=== PATIENT | female | born 1955 | race Caucasian/White ===

== ENCOUNTER 2016-05-08 11:52 | Emergency (ER) | payer OTHER ==
--- NOTE | 2016-05-08 14:44 | DIAGNOSTIC IMAGING REPORT ---
PROCEDURE: XR CHEST 2 VIEW INDICATION: CHEST PAIN TECHNIQUE: Two views. COMPARISON: None. FINDINGS: The cardiomediastinal contour and central vasculature are within normal limits. The lungs are clear without focal consolidation, pleural effusion, or pneumothorax. The visualized osseous structures are intact. IMPRESSION: 1. Normal chest.
--- NOTE | 2016-05-08 14:53 | ED NURSING NOTES ---
Clinical Report - Nurses [facility] [address] [place] [address] 05/08/2016 11:55 Patient: GIDEON RAMIREZ TRIAGE Triage time 1203. Acuity: LEVEL 3. Chief Complaint: CHEST PAIN and (midsternal chest pain onset at 0930 today- at 04/[address] torres to get sooner dr valente and was told to come to ED instead (pain now 02/17--"just a pressure"). SANDY COMA SCORE: [place] Coma Scale: 15- eyes open spontaneously (4); best verbal response- oriented x 4 (5); best motor response- obeys commands (6). --12:10 Lara Fine R.N. 12:00 05/08/16. BP: 117/45. HR: 71. RR: 18. O2 saturation: 98% on room air. Temp: 98.7 F. Pain level now: 02/17. --12:10 Lara Fine R.N. Weight: 63.5 kg stated. Height/Length: 67 inches Per Patient. BMI: 21.9. --12:09 Lara Fine R.N. Medications Corgard Oral 40 mg, takes 1/2 tab at bedtime. --12:07 Lara Fine R.N. Aleve Oral 220 mg, 2 tabs at 11am as needed. --12:15 Lara Fine R.N. Butabarbital Sodium Oral (Tablet 30 mg) 1 tablet, daily (may take up to 3 for headaches ). --12:17 Lara Fine R.N. Estradiol Oral (Tablet 1 mg) 1 tablet, daily . --12:18 Lara Fine R.N. ASA 325mg at 10am . --13:04 Lara Fine R.N. The following entry was struck by Lara Fine R.N., 12:18 (05/08/16) Reason - other. <<STRICKEN ENTRY-- Estrodial. --12:07 Lara Fine R.N. --END STRIKE>> The following entry was struck and corrected by Lara Fine R.N., 12:18 (05/08/16) Reason for correction - other(correction). <<STRICKEN ENTRY-- Corgard Oral. --12:07 Lara Fine R.N. --END STRIKE>> The following entry was struck by Lara Fine R.N., 12:16 (05/08/16) Reason - other. <<STRICKEN ENTRY-- BusPIRone HCl Oral. --12:07 Lara Fine R.N. --END STRIKE>>. Allergies Novacaine= severe vomiting . --12:07 Lara Fine R.N. History Arrived by private vehicle. Historian: patient. Accompanied by (dropped off by daughter). Primary physician (Xavier). ( has had these off and on for about 1 month). Reports experiencing sweating episodes. ( has had dizziness with this pain in past, but not today.). No difficulty breathing, nausea or vomiting. PAST MEDICAL HX: The patient is post-menopausal. ( irritable bowel syndrome , chronic low back pain). SURGERY HX: Had hysterectomy. ( nasal repair , breast reduction then implant). SOCIAL HX: Never smoker. Alcohol use; consumes two glasses of wine weekly. --12:10 Lara Fine R.N. Interventions ID band on patient. To treatment room. --12:10 Lara Fine R.N. PHYSICAL ASSESSMENT 12:03. Ambulatory to room. Patient gowned. GENERAL / NEURO / PSYCH: Alert. Oriented X 4. Appears in no acute distress. RESPIRATORY: Respirations not labored. Chest wall tenderness. CVS: Pulses within normal limits. GI / : Abdomen soft. EXTREMITIES: No lower extremity edema. SKIN: Skin is warm and dry. --12:11 Lara Fine R.N. NURSING PROGRESS NOTES 12:03. Oxygen administered by nasal cannula at 2 liters. clinical research monitor placed on patient. Patient gowned. Head of bed elevated. Reassurance given. Patient identifiers checked. Call light placed in reach. Side rails up. Bed placed in lowest position. Patient ready for evaluation- chart flagged. --12:11 Lara Fine R.N. 12:07 05/08/2016 Site #1 started via IV in the left antecubital space with an 20g angiocath; one attempt. Blood drawn: rainbow set. Labeled in the presence of the patient and sent to the lab. Saline lock flushed with 10 mL saline (IV start by JODI Fields). --12:12 Lara Fine R.N. EKG time: (8887). EKG was ordered, performed and shown to the ED physician. EKG done by RT. --12:35 Lara Fine R.N. 12:30 05/08/16. BP: 109/68. HR: 67. RR: 16. O2 saturation: 100%. Temp: deferred. Pain level now: 1/10. --12:35 Lara Fine R.N. 13:00 05/08/16. BP: 118/66. HR: 62. RR: 16. O2 saturation: 100% on nasal cannula at 2 liters/minute. Temp: deferred. Pain level now: 0/10. Additional comments: resting queitly, watching t.v. denies pain or SOB . --13:05 Lara Fine R.N. 13:30 05/08/16. BP: 113/53. HR: 64. RR: 16. O2 saturation: 100% on nasal cannula. Temp: deferred. Pain level now: 0/10. Additional comments: daughter at bedside. --14:12 Lara Fine R.N. 13:55. ( pt ambulated to bathroom, UA sent to lab. Pt denies chest pain, SOB or dizziness with activity). --14:12 Lara Fine R.N. 14:00. Patient transported to radiology by wheelchair with tech. --14:13 Lara Fine R.N. 14:12. Patient returned from radiology by wheelchair with tech. --14:13 Lara Fine R.N. 14:13 05/08/16. BP: 118/54. HR: 62. RR: 18. O2 saturation: 100%. Temp: deferred. Pain level now: 0/10. --14:14 Lara Fine R.N. 14:15 05/08/2016 Started bag #1 1000 mL IV Fluids IV NS (Saline); bolus of 500 mL over 30 minute(s) then at 200 mL/hr over 1 hour(s) via site #1 via IV pump. --15:35 Lara Fine R.N. 14:45 05/08/2016 IV Fluids IV NS via IV site #1 Rate Changed: bag #1 decreased to 500 mL/hr via IV pump. IV patency established. IV site checked: no pain, redness, or swelling. IV flushed thoroughly. --15:36 Lara Fine R.N. 15:00. Patient ID band checked for patient name and birthdate. Blood samples drawn by lab per protocol ; labeled in presence of the patient and sent to lab. --15:37 Lara Fine R.N. 15:10 05/08/16. BP: 109/71. HR: 70. RR: 16. O2 saturation: 100% on nasal cannula at 2 liters/minute. Temp: deferred. Pain level now: 1/10. Additional comments: pt states she has a small amount of pressure in right chest wall. "almost gone now" lsted less than 2 min . --15:39 Lara Fine R.N. 15:15. ( ERMD in to talk with pt about transfer to [facility] for further work up. Daughter at bedside.). --15:39 Lara Fine R.N. 15:40 05/08/2016 IV Fluids IV NS Discontinued: bag #1 STOPPED upon discharge. Total amount infused: 900 mL. IV patency established. IV site checked: no pain, redness, or swelling. IV flushed thoroughly. --15:52 Lara Fine R.N. 15:25. ( COBRA form signed by pt for transport.). --15:58 Lara Fine R.N. 15:40. ( Pt ambulated to bathroom prior to transport to [facility], EMS crew here, report given). --15:58 Lara Fine R.N. 15:40 05/08/2016 Site #[address] upon transfer; patent. Converted to saline lock. --15:59 Lara Fine R.N. 15:40 05/08/2016 IV Saline Lock Drip IV Continued: upon transfer at the rate of 0 mL/hr. 0 mL remaining bag #1. IV patency established. IV site checked: no pain, redness, or swelling. IV flushed thoroughly. --16:01 Lara Fine R.N. DISPOSITION / DISCHARGE 15:45. Condition at departure: improved and stable. Transferred to [facility]. Transported via ambulance by EMS with monitor, IV and O2. Report was given to a nurse via a phone call. ([facility] SANDY COMA SCORE: [place] Coma Scale: 15- eyes open spontaneously (4); best verbal response- oriented x 4 (5); best motor response- obeys commands (6). --15:51 Lara Fine R.N. 15:45 05/08/16. BP: 116/60. HR: 78. RR: 16. O2 saturation: 99% on nasal cannula at 2 liters/minute. Temp: deferred. Pain level now: 0/10. --15:51 Lara Fine R.N. Departure time: 1556. --15:57 Lara Fine R.N. Locked/Released at 05/08/2016 16:34 by Lara Fine R.N.
--- NOTE | 2016-05-08 14:53 | ED CLINICAL REPORT ---
Clinical Report - Physicians/Mid Levels [facility] [address] [place] [address] 05/08/2016 11:55 Patient: GIDEON RAMIREZ Time Seen: 12:39. Arrived- By private vehicle. Historian- patient. HISTORY OF PRESENT ILLNESS Chief Complaint: CHEST PAIN. It is described as tightness and "pain" and it is described as located in the central chest area. No radiation. At its maximum, severity described as moderate. When seen in the E.D., it was almost gone. Modifying factors. Not worsened by anything. Not relieved by anything. This started about 1 month ago and is still present. It was gradual in onset and has been intermittent and waxing/waning. Onset during light activity. No nausea, vomiting or difficulty breathing. She has experienced diaphoresis. Similar symptoms previously: Recent medical care: Not recently seen/assessed. REVIEW OF SYSTEMS No fever, chills, cough, pedal edema or calf pain. No fainting episodes, headache, sore throat, blurred vision or abdominal pain. No black stools, difficulty with urination, skin rash, enlarged lymph nodes or joint pain. No bloody stools. All systems otherwise negative, except as recorded above. PAST HISTORY See nurses notes. Primary physician (Xavier) - located in [facility] Irritable bowel syndrome, Chronic low back pain. SURGERY HX: Hysterectomy. Nasal repair. Breast reduction then implant. Medications: Estradiol Oral (Tablet 1 mg) 1 tablet, daily . Butabarbital Sodium Oral (Tablet 30 mg) 1 tablet, daily (may take up to 3 for headaches ). Aleve Oral 220 mg, 2 tabs at 11am as needed. Corgard Oral 40 mg, takes 1/2 tab at bedtime. Allergies: Novacaine= severe vomiting . SOCIAL HISTORY Never smoker. Occasional alcohol use. No drug use. Residence: [place] - recently moved from the [facility]. ADDITIONAL NOTES The nursing notes have been reviewed. PHYSICAL EXAM Vital Signs: 05/08/2016 12:30 BP: 109/68. HR: 67. RR: 16. O2 saturation: 100%. Pain level now: 02/17. 05/08/2016 12:00 BP: 117/45. HR: 71. RR: 18. O2 saturation: 98%. Temp: 98.7 F. Pain level now: 02/17. Appearance: Alert. Oriented X3. No acute distress. Eyes: Pupils equal, round and reactive to light. Eyes normal inspection. No scleral icterus or pale conjunctivae. ENT: Pharynx normal. No pharyngeal erythema or tonsillar exudate. The mucous membranes are not dry. Neck: Normal inspection. Neck supple. CVS: Normal heart rate and rhythm. Heart sounds normal. Pulses normal. Respiratory: No respiratory distress. Breath sounds normal. Chest nontender. Abdomen: Soft and nontender. No mass. Back: Normal external inspection. Skin: Skin warm and dry. Normal skin color. No rash. Normal skin turgor. Extremities: Extremities exhibit normal ROM. No calf tenderness. No lower extremity edema. Neuro: Oriented X 3. No motor deficit. LABS, X-RAYS, AND EKG EKG: EKG time: (12:37). Normal sinus rhythm. Rate: 65. Normal P waves. Nondiagnostic Q waves in lead III, V1, V2 and V3. Poor R wave progression. Normal axis. Normal ST and T waves. Non-specific ST segment / T wave abnormalities. Non-specific T wave flattening in lead III, aVF, V2 and V3. T wave inversion in lead aVR and V1 (normal). The study has been interpreted contemporaneously by me. The EKG appears to be a good tracing. Rhythm Strip #1: Normal sinus rhythm. Regular rhythm. Narrow QRS complexes. No ectopy. Chest X-ray: No acute disease. Normal lung markings present. Normal heart size. Mediastinum normal. Great vessels normal. No infiltrate. Views: PA and lateral. Technique: good. The X-rays were interpreted contemporaneously by me. Laboratory Tests: CBC w Diff: (NELLIE: 05/08/2016 12:12) ( MsgRcvd 05/08/2016 12:37) Final results Test Result Flag Units (Reference) WHITE BLOOD COUNT 7.7 K/uL (4.5-11.5) RED BLOOD COUNT 4.78 M/uL (4.00-5.20) HEMOGLOBIN 14.7 gm/dL (12.0-16.0) HEMATOCRIT 44.1 % (36.0-46.0) MEAN CELL VOLUME 92 fL (80-100) MEAN CORPUSCULAR HGB 31 pg (26-34) MEAN CORPUSCULAR HGB CONC 33 g/dL (31-37) RED CELL DISTRIBUTION WIDTH 12.4 % (11.6-14.8) PLATELET COUNT 287 K/uL (150-400) NEUTROPHIL % 77.5 H % (50-75) LYMPH % 11.2 L % (25-40) MONO % 8.4 % (3-14) EOSINOPHIL % 2.5 % (0-4) BASOPHIL % 0.4 % (0-2) Troponin-I: (NELLIE: 05/08/2016 15:00) ( [facility] 05/08/2016 15:38) Final results Test Result Flag Units (Reference) TROPONIN I 0.05 ng/mL (0.00-1.5) TROPONIN REFERENCE RANGE:<0.1 NEGATIVE0.1-1.5 INDETERMINANT>1.5 POSITIVE CMP: (NELLIE: 05/08/2016 12:12) ( [facility] 05/08/2016 13:24) Final results Test Result Flag Units (Reference) GLUCOSE 109 mg/dL (70-110) BUN 20 H mg/dL (7-18) CREATININE 0.8 mg/dL (0.6-1.3) Estimated GFR >60 mL/min Estimated GFR- >60 mL/min Note: Persistent reduction over 3 months in eGFR<60 mL/min/1.73 m2 defines CKD. Patients with eGFR values>=60 mL/min/1.73 m2 may also have CKD if evidence ofpersistent proteinuria. Additional information may be foundat www.kidney.org. SODIUM 141 mmol/L (136-145) POTASSIUM 4.5 mmol/L (3.5-5.1) CHLORIDE 103 mmol/L (98-107) CARBON DIOXIDE 28 mmol/L (21-32) CALCIUM 9.6 mg/dL (8.5-10.1) TOTAL PROTEIN 7.7 g/dL (6.4-8.2) ALBUMIN 4.1 g/dL (3.3-5.0) BILIRUBIN, TOTAL 0.5 mg/dL (0.0-1.0) ALKALINE PHOSPHATASE 75 U/L (46-116) AST (SGOT) 19 U/L (15-37) ALT (SGPT) 20 U/L (12-78) CPK 78 U/L (24-260) TROPONIN I <0.05 ng/mL (0.00-1.5) TROPONIN REFERENCE RANGE:<0.1 NEGATIVE0.1-1.5 INDETERMINANT>1.5 POSITIVE . Pulse Oximetry: 05/08/2016 12:00 O2 saturation: 98%. (FIO2 - room air). Interpretation: normal. PROGRESS AND PROCEDURES Course of Care: ASA 325 mg po taken prior to arrival. LMWH held due to low risk. No nitrates given as she remained pain free in the ED Patient is stable. The patient's symptoms are now gone. Physical exam findings are improved. Pt with some concerning history - stuttering CP / tightness with diaphoresis for a month with some nonspecific ECG changes, but neg trop I now. She should have a "rule out" and functional assessment and, as there is no ability to perform a treadmill at [facility] today or tomorrow, we will transfer to [facility] for further work up, monitoring and treatment. Discussed case with hospitalist, (Barak). Reviewed test results. Agreed upon treatment plan. Refers case to other health care provider. Discussed case with hospitalist, (Erlinda ([facility] cardiology) call returned- feels it is reasonable to admit and rule out with treadmill; [facility] hospitalist call placed 13:48 (no retur) call placed 14:34; call returned 14:50 (Dr Regan) - accepts pt in transfer). Reviewed test results. Agreed upon treatment plan. Patient/family counseled. Transfer orders written. Disposition: Transferred to [facility]. Condition: stable. CLINICAL IMPRESSION Precordial chest pain .12 lead EKG performed. (Electronically signed by Michael Arora DO 05/08/2016 16:07)
--- NOTE | 2016-05-08 14:53 | ED ORDER SUMMARY ---
..... Patient: GIDEON RAMIREZ OrderSheet [facility] VisitID: [id number] [place] [address] 61y, F Registration Date/Time: 05/08/2016 ORDER SHEET Weight: 63.5 kg (stated) Allergies: Novacaine= severe vomiting GENERAL ORDERS: Forensic Sergeant (Continuous) (chest pain ) (12:05/08/2016 DDean R.N. per protocol) (12:14 DDean R.N.) EKG - ER Stat (12:05/08/2016 DDean R.N. per protocol) (Ack 12:32 Terra) (12:35 DDean R.N.) Oxygen (2 L/min) (NC) (12:05/08/2016 DDean R.N. per protocol) (12:14 DDean R.N.) CBC w Diff Urgent (12:25 05/08/2016 DDean R.N. per protocol) (Ack 12:32 Terra) (12:36 DDean R.N.) CMP Urgent (12:25 05/08/2016 DDean R.N. per protocol) (Ack 12:32 Terra) (12:36 DDean R.N.) Troponin-I Urgent (12:41 05/08/2016 PHutchinson DO) (Ack 12:43 Terra) (13:07 DDean R.N.) CPK Urgent (12:41 05/08/2016 PHutchinson DO) (Ack 12:43 Terra) (13:07 DDean R.N.) Troponin-I (at 16:00) Urgent (13:32 05/08/2016 PHutchinson DO) (Cancelled: Other13:41 PHutchinson DO) - (Exercise Stress Test at 17:00 today) (13:32 05/08/2016 PHutchinson DO) (Ack 14:19 Nahun) (Cancelled: Other16:01 DDean R.N.) Troponin-I (repeat trop I at 15:00) Urgent (13:42 05/08/2016 PHutchinson DO) (Ack 14:18 Nahun) (15:36 DDean R.N.) Call (Place call to): ([facility] hosptialist) (13:43 05/08/2016 [facility]) (13:49 IDregis) Chest 2V Urgent (13:54 05/08/2016 [facility]) (Ack 13:59 OHregis) (14:13 DDean R.N.) MEDICATION ORDERS: Aspirin PO 325 mg (if not taken) (12:41 05/08/2016 [facility]) (Cancelled: Other13:07 DDean R.N.) IV FLUIDS: IV Saline Lock (12:14 05/08/2016 DDean R.N. per protocol) (12:14 DDean R.N.) IV NS : initial bolus 500 mL (1000 mL/hr), then 500 mL/hr for X1 (NOW) (13:43 05/08/2016 [facility]) (Ack 14:10 DDean R.N.) (15:35 DDean R.N.) ORDER SHEET NOTES: [Electronically signed by Michael Arora DO (16:07 05/08/2016)] [Electronically signed by Lara Fine R.N. (16:34 05/08/2016)] [Electronically locked/signed by Lara Fine R.N. (16:34 05/08/2016)]
--- NOTE | 2016-05-08 14:53 | ED ORDER SUMMARY ---
..... Patient: GIDEON RAMIREZ OrderSheet [facility] VisitID: [id number] [place] [address] 61y, F Registration Date/Time: 05/08/2016 ORDER SHEET Weight: 63.5 kg (stated) Allergies: Novacaine= severe vomiting GENERAL ORDERS: Facing Slitter (Continuous) (chest pain ) (12:05/08/2016 DDean R.N. per protocol) (12:14 DDean R.N.) EKG - ER Stat (12:05/08/2016 DDean R.N. per protocol) (Ack 12:32 Terra) (12:35 DDean R.N.) Oxygen (2 L/min) (NC) (12:05/08/2016 DDean R.N. per protocol) (12:14 DDean R.N.) CBC w Diff Urgent (12:25 05/08/2016 DDean R.N. per protocol) (Ack 12:32 Terra) (12:36 DDean R.N.) CMP Urgent (12:25 05/08/2016 DDean R.N. per protocol) (Ack 12:32 Terra) (12:36 DDean R.N.) Troponin-I Urgent (12:41 05/08/2016 PHutchinson DO) (Ack 12:43 Terra) (13:07 DDean R.N.) CPK Urgent (12:41 05/08/2016 PHutchinson DO) (Ack 12:43 Terra) (13:07 DDean R.N.) Troponin-I (at 16:00) Urgent (13:32 05/08/2016 PHutchinson DO) (Cancelled: Other13:41 PHutchinson DO) - (Exercise Stress Test at 17:00 today) (13:32 05/08/2016 PHutchinson DO) (Ack 14:19 Nahun) (Cancelled: Other16:01 DDean R.N.) Troponin-I (repeat trop I at 15:00) Urgent (13:42 05/08/2016 PHutchinson DO) (Ack 14:18 Nahun) (15:36 DDean R.N.) Call (Place call to): ([facility] hosptialist) (13:43 05/08/2016 [facility]) (13:49 MOregis) Chest 2V Urgent (13:54 05/08/2016 [facility]) (Ack 13:59 OHregis) (14:13 DDean R.N.) MEDICATION ORDERS: Aspirin PO 325 mg (if not taken) (12:41 05/08/2016 [facility]) (Cancelled: Other13:07 DDean R.N.) IV FLUIDS: IV Saline Lock (12:14 05/08/2016 DDean R.N. per protocol) (12:14 DDean R.N.) IV NS : initial bolus 500 mL (1000 mL/hr), then 500 mL/hr for X1 (NOW) (13:43 05/08/2016 [facility]) (Ack 14:10 DDean R.N.) (15:35 DDean R.N.) ORDER SHEET NOTES: [Electronically signed by Michael Arora DO (16:07 05/08/2016)] [Electronically signed by Lara Fine R.N. (16:34 05/08/2016)] [Electronically locked/signed by Lara Fine R.N. (16:34 05/08/2016)]
--- NOTE | 2016-05-08 14:53 | ED NURSING NOTES ---
Clinical Report - Nurses [facility] [address] [place] [address] 05/08/2016 11:55 Patient: GIDEON RAMIREZ TRIAGE Triage time 1203. Acuity: LEVEL 3. Chief Complaint: CHEST PAIN and (midsternal chest pain onset at 0930 today- at 04/[address] torres to get sooner dr valente and was told to come to ED instead (pain now 02/17--"just a pressure"). SANDY COMA SCORE: Louise Coma Scale: 15- eyes open spontaneously (4); best verbal response- oriented x 4 (5); best motor response- obeys commands (6). --12:10 Lara Fine R.N. 12:00 05/08/16. BP: 117/45. HR: 71. RR: 18. O2 saturation: 98% on room air. Temp: 98.7 F. Pain level now: 02/17. --12:10 Lara Fine R.N. Weight: 63.5 kg stated. Height/Length: 67 inches Per Patient. BMI: 21.9. --12:09 Lara Fine R.N. Medications Corgard Oral 40 mg, takes 1/2 tab at bedtime. --12:07 Lara Fine R.N. Aleve Oral 220 mg, 2 tabs at 11am as needed. --12:15 Lara Fine R.N. Butabarbital Sodium Oral (Tablet 30 mg) 1 tablet, daily (may take up to 3 for headaches ). --12:17 Lara Fine R.N. Estradiol Oral (Tablet 1 mg) 1 tablet, daily . --12:18 Lara Fine R.N. ASA 325mg at 10am . --13:04 Lara Fine R.N. The following entry was struck by Lara Fine R.N., 12:18 (05/08/16) Reason - other. <<STRICKEN ENTRY-- Estrodial. --12:07 Lara Fine R.N. --END STRIKE>> The following entry was struck and corrected by Lara Fine R.N., 12:18 (05/08/16) Reason for correction - other(correction). <<STRICKEN ENTRY-- Corgard Oral. --12:07 Lara Fine R.N. --END STRIKE>> The following entry was struck by Lara Fine R.N., 12:16 (05/08/16) Reason - other. <<STRICKEN ENTRY-- BusPIRone HCl Oral. --12:07 Lara Fine R.N. --END STRIKE>>. Allergies Novacaine= severe vomiting . --12:07 Lara Fine R.N. History Arrived by private vehicle. Historian: patient. Accompanied by (dropped off by daughter). Primary physician (Xavier). ( has had these off and on for about 1 month). Reports experiencing sweating episodes. ( has had dizziness with this pain in past, but not today.). No difficulty breathing, nausea or vomiting. PAST MEDICAL HX: The patient is post-menopausal. ( irritable bowel syndrome , chronic low back pain). SURGERY HX: Had hysterectomy. ( nasal repair , breast reduction then implant). SOCIAL HX: Never smoker. Alcohol use; consumes two glasses of wine weekly. --12:10 Lara Fine R.N. Interventions ID band on patient. To treatment room. --12:10 Lara Fine R.N. PHYSICAL ASSESSMENT 12:03. Ambulatory to room. Patient gowned. GENERAL / NEURO / PSYCH: Alert. Oriented X 4. Appears in no acute distress. RESPIRATORY: Respirations not labored. Chest wall tenderness. CVS: Pulses within normal limits. GI / : Abdomen soft. EXTREMITIES: No lower extremity edema. SKIN: Skin is warm and dry. --12:11 Lara Fine R.N. NURSING PROGRESS NOTES 12:03. Oxygen administered by nasal cannula at 2 liters. monitoring analyst placed on patient. Patient gowned. Head of bed elevated. Reassurance given. Patient identifiers checked. Call light placed in reach. Side rails up. Bed placed in lowest position. Patient ready for evaluation- chart flagged. --12:11 Lara Fine R.N. 12:07 05/08/2016 Site #1 started via IV in the left antecubital space with an 20g angiocath; one attempt. Blood drawn: rainbow set. Labeled in the presence of the patient and sent to the lab. Saline lock flushed with 10 mL saline (IV start by JODI Fields). --12:12 Lara Fine R.N. EKG time: (0827). EKG was ordered, performed and shown to the ED physician. EKG done by RT. --12:35 Lara Fine R.N. 12:30 05/08/16. BP: 109/68. HR: 67. RR: 16. O2 saturation: 100%. Temp: deferred. Pain level now: 1/10. --12:35 Lara Fine R.N. 13:00 05/08/16. BP: 118/66. HR: 62. RR: 16. O2 saturation: 100% on nasal cannula at 2 liters/minute. Temp: deferred. Pain level now: 0/10. Additional comments: resting queitly, watching t.v. denies pain or SOB . --13:05 Lara Fine R.N. 13:30 05/08/16. BP: 113/53. HR: 64. RR: 16. O2 saturation: 100% on nasal cannula. Temp: deferred. Pain level now: 0/10. Additional comments: daughter at bedside. --14:12 Lara Fine R.N. 13:55. ( pt ambulated to bathroom, UA sent to lab. Pt denies chest pain, SOB or dizziness with activity). --14:12 Lara Fine R.N. 14:00. Patient transported to radiology by wheelchair with tech. --14:13 Lara Fine R.N. 14:12. Patient returned from radiology by wheelchair with tech. --14:13 Lara Fine R.N. 14:13 05/08/16. BP: 118/54. HR: 62. RR: 18. O2 saturation: 100%. Temp: deferred. Pain level now: 0/10. --14:14 Lara Fine R.N. 14:15 05/08/2016 Started bag #1 1000 mL IV Fluids IV NS (Saline); bolus of 500 mL over 30 minute(s) then at 200 mL/hr over 1 hour(s) via site #1 via IV pump. --15:35 Lara Fine R.N. 14:45 05/08/2016 IV Fluids IV NS via IV site #1 Rate Changed: bag #1 decreased to 500 mL/hr via IV pump. IV patency established. IV site checked: no pain, redness, or swelling. IV flushed thoroughly. --15:36 Lara Fine R.N. 15:00. Patient ID band checked for patient name and birthdate. Blood samples drawn by lab per protocol ; labeled in presence of the patient and sent to lab. --15:37 Lara Fine R.N. 15:10 05/08/16. BP: 109/71. HR: 70. RR: 16. O2 saturation: 100% on nasal cannula at 2 liters/minute. Temp: deferred. Pain level now: 1/10. Additional comments: pt states she has a small amount of pressure in right chest wall. "almost gone now" lsted less than 2 min . --15:39 Lara Fine R.N. 15:15. ( ERMD in to talk with pt about transfer to [facility] for further work up. Daughter at bedside.). --15:39 Lara Fine R.N. 15:40 05/08/2016 IV Fluids IV NS Discontinued: bag #1 STOPPED upon discharge. Total amount infused: 900 mL. IV patency established. IV site checked: no pain, redness, or swelling. IV flushed thoroughly. --15:52 Lara Fine R.N. 15:25. ( COBRA form signed by pt for transport.). --15:58 Lara Fine R.N. 15:40. ( Pt ambulated to bathroom prior to transport to [facility], EMS crew here, report given). --15:58 Lara Fine R.N. 15:40 05/08/2016 Site #[address] upon transfer; patent. Converted to saline lock. --15:59 Lara Fine R.N. 15:40 05/08/2016 IV Saline Lock Drip IV Continued: upon transfer at the rate of 0 mL/hr. 0 mL remaining bag #1. IV patency established. IV site checked: no pain, redness, or swelling. IV flushed thoroughly. --16:01 Lara Fine R.N. DISPOSITION / DISCHARGE 15:45. Condition at departure: improved and stable. Transferred to [facility]. Transported via ambulance by EMS with monitor, IV and O2. Report was given to a nurse via a phone call. ([facility] SANDY COMA SCORE: Sandy Coma Scale: 15- eyes open spontaneously (4); best verbal response- oriented x 4 (5); best motor response- obeys commands (6). --15:51 Lara Fine R.N. 15:45 05/08/16. BP: 116/60. HR: 78. RR: 16. O2 saturation: 99% on nasal cannula at 2 liters/minute. Temp: deferred. Pain level now: 0/10. --15:51 Lara Fine R.N. Departure time: 1556. --15:57 Lara Fine R.N. Locked/Released at 05/08/2016 16:34 by Lara Fine R.N.
--- NOTE | 2016-05-08 14:53 | ED CLINICAL REPORT ---
Clinical Report - Physicians/Mid Levels [facility] [address] [place] [address] 05/08/2016 11:55 Patient: GIDEON RAMIREZ Time Seen: 12:39. Arrived- By private vehicle. Historian- patient. HISTORY OF PRESENT ILLNESS Chief Complaint: CHEST PAIN. It is described as tightness and "pain" and it is described as located in the central chest area. No radiation. At its maximum, severity described as moderate. When seen in the E.D., it was almost gone. Modifying factors. Not worsened by anything. Not relieved by anything. This started about 1 month ago and is still present. It was gradual in onset and has been intermittent and waxing/waning. Onset during light activity. No nausea, vomiting or difficulty breathing. She has experienced diaphoresis. Similar symptoms previously: Recent medical care: Not recently seen/assessed. REVIEW OF SYSTEMS No fever, chills, cough, pedal edema or calf pain. No fainting episodes, headache, sore throat, blurred vision or abdominal pain. No black stools, difficulty with urination, skin rash, enlarged lymph nodes or joint pain. No bloody stools. All systems otherwise negative, except as recorded above. PAST HISTORY See nurses notes. Primary physician (Xavier) - located in [facility] Irritable bowel syndrome, Chronic low back pain. SURGERY HX: Hysterectomy. Nasal repair. Breast reduction then implant. Medications: Estradiol Oral (Tablet 1 mg) 1 tablet, daily . Butabarbital Sodium Oral (Tablet 30 mg) 1 tablet, daily (may take up to 3 for headaches ). Aleve Oral 220 mg, 2 tabs at 11am as needed. Corgard Oral 40 mg, takes 1/2 tab at bedtime. Allergies: Novacaine= severe vomiting . SOCIAL HISTORY Never smoker. Occasional alcohol use. No drug use. Residence: [place] - recently moved from the [facility]. ADDITIONAL NOTES The nursing notes have been reviewed. PHYSICAL EXAM Vital Signs: 05/08/2016 12:30 BP: 109/68. HR: 67. RR: 16. O2 saturation: 100%. Pain level now: 02/17. 05/08/2016 12:00 BP: 117/45. HR: 71. RR: 18. O2 saturation: 98%. Temp: 98.7 F. Pain level now: 02/17. Appearance: Alert. Oriented X3. No acute distress. Eyes: Pupils equal, round and reactive to light. Eyes normal inspection. No scleral icterus or pale conjunctivae. ENT: Pharynx normal. No pharyngeal erythema or tonsillar exudate. The mucous membranes are not dry. Neck: Normal inspection. Neck supple. CVS: Normal heart rate and rhythm. Heart sounds normal. Pulses normal. Respiratory: No respiratory distress. Breath sounds normal. Chest nontender. Abdomen: Soft and nontender. No mass. Back: Normal external inspection. Skin: Skin warm and dry. Normal skin color. No rash. Normal skin turgor. Extremities: Extremities exhibit normal ROM. No calf tenderness. No lower extremity edema. Neuro: Oriented X 3. No motor deficit. LABS, X-RAYS, AND EKG EKG: EKG time: (12:37). Normal sinus rhythm. Rate: 65. Normal P waves. Nondiagnostic Q waves in lead III, V1, V2 and V3. Poor R wave progression. Normal axis. Normal ST and T waves. Non-specific ST segment / T wave abnormalities. Non-specific T wave flattening in lead III, aVF, V2 and V3. T wave inversion in lead aVR and V1 (normal). The study has been interpreted contemporaneously by me. The EKG appears to be a good tracing. Rhythm Strip #1: Normal sinus rhythm. Regular rhythm. Narrow QRS complexes. No ectopy. Chest X-ray: No acute disease. Normal lung markings present. Normal heart size. Mediastinum normal. Great vessels normal. No infiltrate. Views: PA and lateral. Technique: good. The X-rays were interpreted contemporaneously by me. Laboratory Tests: CBC w Diff: (NELLIE: 05/08/2016 12:12) ( MsgRcvd 05/08/2016 12:37) Final results Test Result Flag Units (Reference) WHITE BLOOD COUNT 7.7 K/uL (4.5-11.5) RED BLOOD COUNT 4.78 M/uL (4.00-5.20) HEMOGLOBIN 14.7 gm/dL (12.0-16.0) HEMATOCRIT 44.1 % (36.0-46.0) MEAN CELL VOLUME 92 fL (80-100) MEAN CORPUSCULAR HGB 31 pg (26-34) MEAN CORPUSCULAR HGB CONC 33 g/dL (31-37) RED CELL DISTRIBUTION WIDTH 12.4 % (11.6-14.8) PLATELET COUNT 287 K/uL (150-400) NEUTROPHIL % 77.5 H % (50-75) LYMPH % 11.2 L % (25-40) MONO % 8.4 % (3-14) EOSINOPHIL % 2.5 % (0-4) BASOPHIL % 0.4 % (0-2) Troponin-I: (NELLIE: 05/08/2016 15:00) ( [facility] 05/08/2016 15:38) Final results Test Result Flag Units (Reference) TROPONIN I 0.05 ng/mL (0.00-1.5) TROPONIN REFERENCE RANGE:<0.1 NEGATIVE0.1-1.5 INDETERMINANT>1.5 POSITIVE CMP: (NELLIE: 05/08/2016 12:12) ( [facility] 05/08/2016 13:24) Final results Test Result Flag Units (Reference) GLUCOSE 109 mg/dL (70-110) BUN 20 H mg/dL (7-18) CREATININE 0.8 mg/dL (0.6-1.3) Estimated GFR >60 mL/min Estimated GFR- >60 mL/min Note: Persistent reduction over 3 months in eGFR<60 mL/min/1.73 m2 defines CKD. Patients with eGFR values>=60 mL/min/1.73 m2 may also have CKD if evidence ofpersistent proteinuria. Additional information may be foundat www.kidney.org. SODIUM 141 mmol/L (136-145) POTASSIUM 4.5 mmol/L (3.5-5.1) CHLORIDE 103 mmol/L (98-107) CARBON DIOXIDE 28 mmol/L (21-32) CALCIUM 9.6 mg/dL (8.5-10.1) TOTAL PROTEIN 7.7 g/dL (6.4-8.2) ALBUMIN 4.1 g/dL (3.3-5.0) BILIRUBIN, TOTAL 0.5 mg/dL (0.0-1.0) ALKALINE PHOSPHATASE 75 U/L (46-116) AST (SGOT) 19 U/L (15-37) ALT (SGPT) 20 U/L (12-78) CPK 78 U/L (24-260) TROPONIN I <0.05 ng/mL (0.00-1.5) TROPONIN REFERENCE RANGE:<0.1 NEGATIVE0.1-1.5 INDETERMINANT>1.5 POSITIVE . Pulse Oximetry: 05/08/2016 12:00 O2 saturation: 98%. (FIO2 - room air). Interpretation: normal. PROGRESS AND PROCEDURES Course of Care: ASA 325 mg po taken prior to arrival. LMWH held due to low risk. No nitrates given as she remained pain free in the ED Patient is stable. The patient's symptoms are now gone. Physical exam findings are improved. Pt with some concerning history - stuttering CP / tightness with diaphoresis for a month with some nonspecific ECG changes, but neg trop I now. She should have a "rule out" and functional assessment and, as there is no ability to perform a treadmill at [facility] today or tomorrow, we will transfer to [facility] for further work up, monitoring and treatment. Discussed case with hospitalist, (Barak). Reviewed test results. Agreed upon treatment plan. Refers case to other health care provider. Discussed case with hospitalist, (Erlinda ([facility] cardiology) call returned- feels it is reasonable to admit and rule out with treadmill; [facility] hospitalist call placed 13:48 (no retur) call placed 14:34; call returned 14:50 (Dr Regan) - accepts pt in transfer). Reviewed test results. Agreed upon treatment plan. Patient/family counseled. Transfer orders written. Disposition: Transferred to [facility]. Condition: stable. CLINICAL IMPRESSION Precordial chest pain .12 lead EKG performed. (Electronically signed by Michael Arora DO 05/08/2016 16:07)
--- NOTE | 2016-05-08 16:35 | ED DISCHARGE INSTRUCTIONS ---
Patient: GIDEON RAMIREZ ROS General Instructions [facility] VisitID: [id number] [address] [place] [address] 61y, F Registration Date/Time: 05/08/2016 Precordial chest pain .12 lead EKG performed. (Electronically signed by Michael Arora DO 05/08/2016 16:07)
--- NOTE | 2016-05-08 16:35 | ED MED RECONCILIATION SUMMARY ---
Patient: GIDEON RAMIREZ Medication Reconciliation Report [facility] VisitID: [id number] [address] [place] [address] 61y, F Registration Date/Time: 05/08/2016 Weight: 63.5 kg Height/Length: 67 in. BMI: 21.9 ALLERGIES: Novacaine= severe vomiting The patient's Home Medications are listed below: THE FOLLOWING MEDICATIONS NEED TO BE RECONCILED: Aleve Oral 220 mg, 2 tabs at 11am ASA 325mg at 10am Butabarbital Sodium Oral (30 mg) 1 tablet, daily , may take up to 3 for headaches Corgard Oral 40 mg, takes 1/2 tab at bedtime Estradiol Oral (1 mg) 1 tablet, daily The source(s) of the original Home Medication information: Not obtained. The following Medications were given to the patient in the Emergency Department: IV NS IV Fluids bolus 500 mL over 30 minute(s), then 200 mL/hr, administered: 05/08/2016 2:15:00 PM The following Medications were prescribed to the patient: None.
--- NOTE | 2016-05-08 16:35 | ED MED RECONCILIATION SUMMARY ---
Patient: GIDEON RAMIREZ Medication Reconciliation Report [facility] VisitID: [id number] [address] [place] [address] 61y, F Registration Date/Time: 05/08/2016 Weight: 63.5 kg Height/Length: 67 in. BMI: 21.9 ALLERGIES: Novacaine= severe vomiting The patient's Home Medications are listed below: THE FOLLOWING MEDICATIONS NEED TO BE RECONCILED: Aleve Oral 220 mg, 2 tabs at 11am ASA 325mg at 10am Butabarbital Sodium Oral (30 mg) 1 tablet, daily , may take up to 3 for headaches Corgard Oral 40 mg, takes 1/2 tab at bedtime Estradiol Oral (1 mg) 1 tablet, daily The source(s) of the original Home Medication information: Not obtained. The following Medications were given to the patient in the Emergency Department: IV NS IV Fluids bolus 500 mL over 30 minute(s), then 200 mL/hr, administered: 05/08/2016 2:15:00 PM The following Medications were prescribed to the patient: None.
--- NOTE | 2016-05-08 16:35 | ED MAR SUMMARY ---
..... Medication Administration Record [facility] [address] [place] [address] Patient: GIDEON RAMIREZ Visit ID: [id number] 61y, F Weight: 63.5 kg Height/Length: 67 in BMI: 21.9 ALLERGIES: Novacaine= severe vomiting Start 14:15 05/08/2016 Lara Fine RHerlinda, Stop 15:40 05/08/2016 Lara Fine R.N. Medication Administered: IV NS (SALINE), Dose: IV Fluids over 1 hour(s), Rate: 200 mL/hr, Bolus: 500 mL over 30 minute(s), Dispensed: 1000 mL bag, Site: #1 left . Medication Ordered: IV NS : initial bolus 500 mL (1000 mL/hr), then 500 mL/hr for X1 (NOW).
--- NOTE | 2016-05-08 16:35 | ED MAR SUMMARY ---
..... Medication Administration Record [facility] [address] [place] [address] Patient: GIDEON RAMIREZ Visit ID: [id number] 61y, F Weight: 63.5 kg Height/Length: 67 in BMI: 21.9 ALLERGIES: Novacaine= severe vomiting Start 14:15 05/08/2016 Lara Fine RHerlinda, Stop 15:40 05/08/2016 Lara Fine R.N. Medication Administered: IV NS (SALINE), Dose: IV Fluids over 1 hour(s), Rate: 200 mL/hr, Bolus: 500 mL over 30 minute(s), Dispensed: 1000 mL bag, Site: #1 left . Medication Ordered: IV NS : initial bolus 500 mL (1000 mL/hr), then 500 mL/hr for X1 (NOW).
--- NOTE | 2016-05-08 16:35 | ED DISCHARGE INSTRUCTIONS ---
Patient: GIDEON RAMIREZ ROS General Instructions [facility] VisitID: [id number] [address] [place] [address] 61y, F Registration Date/Time: 05/08/2016 Precordial chest pain .12 lead EKG performed. (Electronically signed by Micheal Arora DO 05/08/2016 16:07)
== END 2016-05-08 15:56 | disposition short-term general hospital (02) ==
LOC: ED SRH 11:52
DX: R07.2 Precordial pain (principal); Z79.899 Other long term (current) drug therapy
CPT/HCPCS: 90074; 90100; 90616; 92610; 95059

== ENCOUNTER 2016-07-22 09:54 | Outpatient (CLI) | payer OTHER ==
--- NOTE | 2016-07-22 10:39 | DIAGNOSTIC IMAGING REPORT ---
PROCEDURE: DEXA BONE DENSITY STUDY CLINICAL INDICATION: POST MENOPAUSAL STATUS COMPARISON: None. FINDINGS: LUMBAR SPINE: Bone mineral density 1.007 g/cm2, T score -0.4 normal LEFT HIP: Bone mineral density 0.832 g/cm2, T score -0.9 normal LEFT FEMORAL NECK: Bone mineral density 0.649 g/cm2, T score -1.8 osteopenia FRACTURE RISK CALCULATION ( when applicable): 10-year fracture risk of a major osteoporotic fracture 8.9% and of a hip fracture 1.0% (T score greater or equal to -1.0 to: NORMAL) (T score from -1.1 to -2.4: OSTEOPENIA) (T score ess than or equal to -2.5: OSTEOPOROSIS) IMPRESSION: 1. Osteopenia left femoral neck with a a 10-year fracture risk of 8.9% and a hip fracture risk of 1%
== END 2016-07-22 23:00 ==
LOC: XR SRH 09:54
DX: Z78.0 Asymptomatic menopausal state (principal); M85.80 Other specified disorders of bone density and structure, unspecified site